=== PATIENT | male | born 1985 | race Hispanic/Latino ===

== ENCOUNTER 2018-01-17 01:55 | Emergency (ER) | payer SELFPAY ==
[2018-01-17 02:14] VITALS: BP 127/78; PULSE 90; RESP 14; TEMP 98; O2SAT 99
[2018-01-17] MEDS ORDERED: Bacitracin 500 Units/gm Oint Foilpak UD ONE (02:49)
--- NOTE | 2018-01-17 02:54 | C.PDOC ---
History Of Present Illness 32 years old male presents to ED with complaints of laceration to right thumb that occurred yesterday at 5PM. Patient states he was able to stop the bleeding. Patient reports he accidentally struck injured finger against a counter at work and area started to bleed again which prompted the ER visit. Denies any other physical complaints. UTD with tetanus Time Seen by Provider: 01/17/18 02:27 Chief Complaint (Nursing): Abnormal Skin Integrity History Per: Patient History/Exam Limitations: no limitations Onset/Duration Of Symptoms: Days (1) Current Symptoms Are (Timing): Still Present Location Of Injury: Right: Hand (Right thumb ) Recent travel outside of the [place]: No Past Medical History Reviewed: Historical Data, Nursing Documentation, Vital Signs Vital Signs: Last Vital Signs Temp 98 F 01/17/18 02:09 Pulse 90 01/17/18 02:09 Resp 14 01/17/18 02:09 BP 127/78 01/17/18 02:09 Pulse Ox 99 01/17/18 03:23 - Medical History PMH: Kidney Stones Surgical History: No Surg Hx Family History: States: Unknown Family Hx - Social History Hx Tobacco Use: Yes Hx Alcohol Use: Yes Hx Substance Use: No - Immunization History Hx Tetanus Toxoid Vaccination: Yes Hx Influenza Vaccination: Yes Hx Pneumococcal Vaccination: Yes Review Of Systems Constitutional: Negative for: Fever, Chills Gastrointestinal: Negative for: Nausea, Vomiting, Diarrhea Skin: Positive for: Other (Right thumb bleeding). Negative for: Rash Neurological: Negative for: Weakness, Numbness Physical Exam - Physical Exam Appears: Non-toxic, No Acute Distress Skin: Warm, Dry, Other (Small area of skin avulsion of right thumb. No forign body. Good capillary refill.) Extremity: Normal ROM, Capillary Refill, No Deformity, Other (No bleeding. xeroform dressing applied to thumb. ) Neurological/Psych: Oriented x3, Normal Speech, Normal Cognition Gait: Steady ED Course And Treatment O2 Sat by Pulse Oximetry: 99 (RA) Pulse Ox Interpretation: Normal Disposition Counseled Patient/Family Regarding: Diagnosis, Need For Followup, Rx Given - Disposition Referrals: [facility] [Outside] Disposition: HOME/ ROUTINE Disposition Time: 02:52 Condition: STABLE Additional Instructions: Please Keep wound clean and dry x 48 hrs Apply bacitracin ointment follow up with PMD Return to ER if worse Instructions: Wound Care (DC) Forms: [facility] (Albanian) - Clinical Impression Clinical Impression: Avulsion, skin - 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 - Scribe Statement The provider has reviewed the documentation as recorded by the Scribe Raphael Sauceda All medical record entries made by the Seanibmary were at my direction and personally dictated by me. I have reviewed the chart and agree that the record accurately reflects my personal performance of the history, physical exam, medical decision making, and the department course for this patient. I have also personally directed, reviewed, and agree with the discharge instructions and disposition.
== END 2018-01-17 03:23 | disposition home or self-care (01) ==
LOC: C.ER 01:55
DX: S61.011A Laceration without foreign body of right thumb without damage to nail, initial encounter (principal); W22.09XA Striking against other stationary object, initial encounter; Y92.89 Other specified places as the place of occurrence of the external cause; Y99.8 Other external cause status

== ENCOUNTER 2018-05-14 16:22 | Inpatient (IN) | payer OTHER ==
[2018-05-14 16:37] VITALS: BMI 26.6
[2018-05-14 17:17] LABS: BASO % 0.3 % (0.0-2.0); EOS # 0.1 K/uL (0.0-0.7); EOS % 0.4 % (0.0-4.0); HEMOGLOBIN 19.5 g/dL (12.0-18.0); LYMPH # 1.3 K/uL (1.0-4.3); LYMPH % 9.5 % (20.0-40.0); MEAN CELL VOLUME 83.8 fL (80.0-94.0); MEAN CORPUSCULAR HEMOGLOBIN 29.6 pg (27.0-31.0); MEAN CORPUSCULAR HGB CONC 35.3 g/dL (33.0-37.0); MEAN PLATELET VOLUME 9.4 fL (7.2-11.7); MONO # 2.6 K/uL (0.0-0.8); MONO % 19.4 % (0.0-10.0); NEUT # 9.5 K/uL (1.8-7.0); NEUT % 70.4 % (50.0-75.0); NRBC % 0.1 % (0.0-2.0); PLATELET COUNT 291 K/uL (130-400); RBC 6.59 Mil/uL (4.40-5.90); RED CELL DISTRIBUTION WIDTH 12.9 % (11.5-14.5); WHITE BLOOD COUNT 13.5 K/uL (4.8-10.8)
[2018-05-14 17:31] LABS: ALB/GLOB RATIO 1.4 (1.0-2.1); ALBUMIN 5.3 g/dL (3.5-5.0); CALCIUM 9.2 mg/dl (8.6-10.4)
[2018-05-14 17:38] LABS: SQUAMOUS EPITHIAL < 1 /hpf (0-5); URINE BILIRUBIN NEGATIVE (NEGATIVE); URINE BLOOD NEGATIVE (NEGATIVE); URINE CLARITY Hazy (Clear); URINE GLUCOSE (UA) NORMAL (Normal); URINE HYALINE CAST >20 /lpf (0-2); URINE LEUKOCYTE ESTERASE NEG Leu/uL (Negative); URINE PROTEIN 2+ mg/dL (NEGATIVE); URINE UROBILINOGEN NORMAL mg/dL (0.2-1.0)
[2018-05-14] MEDS ORDERED: Sodium Chloride 0.9% 1,000 ML IV ONE ×3 (17:39→19:30)
[2018-05-14] MEDS ORDERED: Potassium Chloride 20 mEq ER Tab PO STA (17:46)
[2018-05-14 17:50] LABS: URINE COLOR YELLOW (YELLOW)
[2018-05-14] MEDS ORDERED: Sodium Chloride 0.9% 2,000 ML ONE (17:50)
[2018-05-14] MEDS ORDERED: Potassium Chloride 20 mEq ER Tab PO ONE (18:02)
[2018-05-14 18:30] LABS: BANDS 5 % (0-2); LYMPHOCYTE 11 % (20-40); MONOCYTE 15 % (0-10); NEUTROPHIL 69 % (50-75); PLATELET ESTIMATE NORMAL (NORMAL); TOTAL CELLS COUNTED 100
--- NOTE | 2018-05-14 18:46 | C.PDOC ---
History Of Present Illness <Valdemar Madden - Last Filed: 05/14/18 19:51> <Tristian Florence DO - Last Filed: 05/15/18 13:29> 33 y/o male presents to the ER complaining of nausea, vomiting and diarrhea for 3 days. The patient admits to a subjective fever two days ago and state he is unable to tolerate PO intake. He reports taking theraflu with no relief at home. The patient also denies any hematemesis or blood in stool. (Ludivina NOLASCO Tristian) <Valdemar Madden - Last Filed: 05/14/18 19:51> History Per: Patient History/Exam Limitations: no limitations Onset/Duration Of Symptoms: Days Current Symptoms Are (Timing): Still Present Associated Symptoms: Nausea, Vomiting, Diarrhea Alleviating Factors: None Last Bowel Movement: Today Recent travel outside of the [place]: No <Jeremyjennifer Tristian NOLASCO - Last Filed: 05/15/18 13:29> Time Seen by Provider: 05/14/18 17:01 Chief Complaint (Nursing): GI Problem Past Medical History Reviewed: Historical Data, Nursing Documentation, Vital Signs - Medical History PMH: Kidney Stones Surgical History: No Surg Hx Family History: States: Unknown Family Hx - Social History Hx Tobacco Use: Yes Hx Alcohol Use: Yes Hx Substance Use: No - Immunization History Hx Tetanus Toxoid Vaccination: Yes Hx Influenza Vaccination: No Hx Pneumococcal Vaccination: No <Tristian Florence DO - Last Filed: 05/15/18 13:29> Vital Signs: Last Vital Signs Temp 98.2 F 05/15/18 07:00 Pulse 74 05/15/18 07:00 Resp 20 05/15/18 07:00 BP 147/78 05/15/18 07:00 Pulse Ox 97 05/15/18 07:00 Review Of Systems Except As Marked, All Systems Reviewed And Found Negative. Constitutional: Negative for: Fever Gastrointestinal: Positive for: Nausea, Vomiting, Diarrhea Genitourinary: Negative for: Hematuria, Other (blood in stool ) <Tristian Florence DO - Last Filed: 05/15/18 13:29> Physical Exam - Physical Exam Appears: Well, Non-toxic, No Acute Distress Skin: Normal Color, Warm, Dry Head: Atraumatic, Normacephalic Eye(s): bilateral: Normal Inspection, PERRL, EOMI Ear(s): Bilateral: Normal Nose: Normal Oral Mucosa: Dry Throat: Normal Neck: Normal ROM Chest: Symmetrical Cardiovascular: Rhythm Regular, No Murmur Respiratory: Normal Breath Sounds, No Rales, No Rhonchi, No Wheezing Gastrointestinal/Abdominal: Normal Exam, Soft, Tenderness (mild, diffuse abdominal tenderness) Extremity: Normal ROM Extremity: Bilateral: Atraumatic, Normal Color And Temperature, Normal ROM Pulses: Left Radial: Normal, Right Radial: Normal Neurological/Psych: Oriented x3, Normal Speech Gait: Steady <Ludivina NOLASCOTristian - Filed: 05/15/18 13:29> ED Course And Treatment - Laboratory Results Result Diagrams: 05/14/18 17:14 05/14/18 17:14 <Valdemar Madden - Filed: 05/14/18 19:51> - Laboratory Results Result Diagrams: 05/15/18 06:36 05/15/18 06:36 O2 Sat by Pulse Oximetry: 100 (RA) Pulse Ox Interpretation: Normal - CT Scan/US Abdomen/ Pelvis Other Rad Studies (CT/US): Read By Radiologist, Radiology Report Reviewed CT/US Interpretation: FINDINGS: LOWER THORAX: Unremarkable. LIVER: Unremarkable. No gross lesion or ductal dilatation. GALLBLADDER AND BILE DUCTS : Unremarkable. PANCREAS: Unremarkable. No gross lesion or ductal dilatation. SPLEEN: Mild splenomegaly. The spleen measures approximately 14 cm in greatest dimension. No mass. ADRENALS: Unremarkable. No mass. KIDNEYS AND URETERS: Unremarkable. No hydronephrosis. No solid mass. VASCULATURE: Unremarkable. No aortic aneurysm. BOWEL: Unremarkable. No obstruction. No gross mural thickening. APPENDIX: Unremarkable. Normal appendix. PERITONEUM: Unremarkable. No free fluid. No free air. LYMPH NODES: No retroperitoneal or pelvic lymphadenopathy. Shotty subcentimeter mesenteric nodes are evident as well as nodes medial to the cecum and ascending colon, consistent with nonspecific mesenteric adenitis. Best demonstrated on series 601, image 47. There are also shotty subcentimeter retroperitoneal nodes common nonspecific. BLADDER: Unremarkable. REPRODUCTIVE: Normal prostate. BONES: No acute fracture. OTHER FINDINGS: None. IMPRESSION: Finding consistent with mesenteric lymphadenitis. Mild splenomegaly. No other acute abnormality. <Tristian Florence DO - Last Filed: 05/15/18 13:29> Medical Decision Making <Valdemar Madden - Last Filed: 05/14/18 19:51> <Ludivina NOLASCOTristian - Last Filed: 05/15/18 13:29> Medical Decision Making: Impression: 33 y/o male with persistent nausea, vomiting and diarrhea Plan: -- CT abd/pelvis --CMP --Lipase --CBC --Pepcid 20 mg IV --Potassium Chloride 10 meq in 100 ml IV --IV FLuid --Zofran Inj 4 mg IV --UA (Tristian Florence DO) Disposition Discussed With DrPritesh: Nguyễn Henriquez Comment: accepted the pt on his service and took over the care at 7:52 PM Doctor Will See Patient In The: ED Counseled Patient/Family Regarding: Studies Performed, Diagnosis - Disposition Disposition Time: 19:00 <Valdemar Madden - Last Filed: 05/14/18 19:51> <Ludivina NOLASCOTristian - Last Filed: 05/15/18 13:29> - Disposition Disposition: HOSPITALIZED Condition: FAIR - Clinical Impression Clinical Impression: Abdominal pain, Nausea & vomiting, Severe dehydration, Renal insufficiency <Valdemar Madden - Last Filed: 05/14/18 19:51> - PA / SENIOR TRIAL ATTORNEY / Resident Statement JASON has reviewed & agrees with the documentation as recorded. - Scribe Statement The provider has reviewed the documentation as recorded by the Scribe (Ivis Felix) <Ludivina NOLASCOTristian - Last Filed: 05/15/18 13:29> - Scribe Statement Provider Attestation: All medical record entries made by the Scribe were at my direction and personally dictated by me. I have reviewed the chart and agree that the record accurately reflects my personal performance of the history, physical exam, medical decision making, and the department course for this patient. I have also personally directed, reviewed, and agree with the discharge instructions and disposition. (Tristian Florence DO) Decision To Admit - Pt Status Changed To: Hospital Disposition Of: Inpatient - Admit Certification Admit to Inpatient:: After my assessment, the patient will require hospitalization for at least two midnights. This is because of the severity of symptoms shown, intensity of services needed, and/or the medical risk in this patient being treated as an outpatient. - InPatient: Physician Admission Certification: I certify that this patient requires 2 or more midnights of care for the following reason:: After my assessment, the patient will require hospitalization for at least two midnights. This is because of the severity of symptoms shown, intensity of services needed, and/or the medical risk in this patient being treated as an outpatient. - . Bed Request Type: Regular Admitting Physician: Nguyễn Henriquez <Valdemar Madden - Last Filed: 05/14/18 19:51> <Tristian Florence DO - Last Filed: 05/15/18 13:29> - . Patient Diagnosis: Abdominal pain, Nausea & vomiting, Severe dehydration, Renal insufficiency
--- NOTE | 2018-05-14 18:53 | CT ---
Date of service: 05/14/2018 PROCEDURE: CT Abdomen and Pelvis without intravenous contrast HISTORY: diffuse abd tenderness COMPARISON: 08/10/2015 TECHNIQUE: Without contrast.. Contrast dose: 0 Radiation dose: Total exam DLP = 877.50 mGy-cm. This CT exam was performed using one or more of the following dose reduction techniques: Automated exposure control, adjustment of the mA and/or kV according to patient size, and/or use of iterative reconstruction technique. FINDINGS: LOWER THORAX: Unremarkable. LIVER: Unremarkable. No gross lesion or ductal dilatation. GALLBLADDER AND BILE DUCTS: Unremarkable. PANCREAS: Unremarkable. No gross lesion or ductal dilatation. SPLEEN: Mild splenomegaly. The spleen measures approximately 14 cm in greatest dimension. No mass. ADRENALS: Unremarkable. No mass. KIDNEYS AND URETERS: Unremarkable. No hydronephrosis. No solid mass. VASCULATURE: Unremarkable. No aortic aneurysm. BOWEL: Unremarkable. No obstruction. No gross mural thickening. APPENDIX: Unremarkable. Normal appendix. PERITONEUM: Unremarkable. No free fluid. No free air. LYMPH NODES: No retroperitoneal or pelvic lymphadenopathy. Shotty subcentimeter mesenteric nodes are evident as well as nodes medial to the cecum and ascending colon, consistent with nonspecific mesenteric adenitis. Best demonstrated on series 601, image 47. There are also shotty subcentimeter retroperitoneal nodes common nonspecific. BLADDER: Unremarkable. REPRODUCTIVE: Normal prostate BONES: No acute fracture. OTHER FINDINGS: None. IMPRESSION: Finding consistent with mesenteric lymphadenitis. Mild splenomegaly. No other acute abnormality.
[2018-05-14 21:44] VITALS: RESP 20
[2018-05-14] MEDS ORDERED: Sodium Chloride 0.9% 1,000 ML IV SCH (22:30)
--- NOTE | 2018-05-14 22:37 | CP.PCM.HP ---
<Nguyễn Henriquez P - Last Filed: 05/15/18 06:59> Meds Allergies/Adverse Reactions: Allergies Allergy/AdvReac Type Severity Reaction Status Date / Time No Known Allergies Allergy Verified 05/14/18 16:35 Results - Vital Signs Recent Vital Signs: Last Vital Signs Temp 98.2 F 05/15/18 00:00 Pulse 76 05/15/18 00:00 Resp 20 05/15/18 00:00 BP 125/71 05/15/18 00:00 Pulse Ox 98 05/15/18 00:00 - Labs Result Diagrams: 05/15/18 00:31 05/15/18 00:31 Labs: Laboratory Results - last 24 hr 05/14/18 05/14/18 05/14/18 17:14 17:14 17:19 WBC 13.5 H RBC 6.59 H Hgb 19.5 H D Hct 55.2 H MCV 83.8 D MCH 29.6 MCHC 35.3 RDW 12.9 Plt Count 291 D MPV 9.4 Neut % (Auto) 70.4 Lymph % (Auto) 9.[address] [facility] % (Auto) 19.4 H Eos % (Auto) 0.4 Baso % (Auto) 0.3 Neut # (Auto) 9.5 H Lymph # (Auto) 1.3 [facility] # (Auto) 2.6 H Eos # (Auto) 0.1 Baso # (Auto) 0.0 Neutrophils % (Manual) 69 Band Neutrophils % 5 H Lymphocytes % (Manual) 11 L Monocytes % (Manual) 15 H Platelet Estimate Normal Sodium 128 L Potassium 3.0 L Chloride 85 L Carbon Dioxide 17 L Anion Gap 29 H BUN 42 H Creatinine 4.0 H Est GFR ( Amer) 21 Est GFR (Non-Af Amer) 17 Random Glucose 144 H Calcium 9.2 Phosphorus Magnesium Total Bilirubin 0.9 AST 47 ALT 38 Alkaline Phosphatase 91 Total Protein 9.2 H Albumin 5.3 H D Globulin 3.8 Albumin/Globulin Ratio 1.4 Lipase Urine Color Yellow Urine Clarity Hazy Urine pH 5.0 Ur Specific Norman 1.020 Urine Protein 2+ H Urine Glucose (UA) Normal Urine Ketones Negative Urine Blood Negative Urine Nitrate Negative Urine Bilirubin Negative Urine Urobilinogen Normal Ur Leukocyte Esterase Neg Urine WBC (Auto) 2 Urine RBC (Auto) 1 Ur Squamous Epith Cells < 1 Hyaline Casts >20 H Stool Occult Blood 05/14/18 05/15/18 05/15/18 17:44 00:31 00:31 WBC 9.2 RBC 5.17 Hgb 15.3 D Hct 43.2 MCV 83.7 MCH 29.6 MCHC 35.4 RDW 12.5 Plt Count 199 MPV 9.0 Neut % (Auto) 64.5 Lymph % (Auto) 13.[address] [facility] % (Auto) 20.8 H Eos % (Auto) 0.9 Baso % (Auto) 0.3 Neut # (Auto) 5.9 Lymph # (Auto) 1.2 [facility] # (Auto) 1.9 H Eos # (Auto) 0.1 Baso # (Auto) 0.0 Neutrophils % (Manual) 65 Band Neutrophils % 1 Lymphocytes % (Manual) 14 L Monocytes % (Manual) 20 H Platelet Estimate Normal Sodium 131 L Potassium 2.9 L Chloride 97 L Carbon Dioxide 19 L Anion Gap 18 BUN 29 H Creatinine 1.9 H Est GFR ( Amer) 49 Est GFR (Non-Af Amer) 41 Random Glucose 111 H Calcium 7.8 L Phosphorus Magnesium 1.7 Total Bilirubin 0.6 AST 37 ALT 34 Alkaline Phosphatase 65 Total Protein 6.5 Albumin 3.8 Globulin 2.6 Albumin/Globulin Ratio 1.4 Lipase 98 Urine Color Urine Clarity Urine pH Ur Specific [place] Urine Protein Urine Glucose (UA) Urine Ketones Urine Blood Urine Nitrate Urine Bilirubin Urine Urobilinogen Ur Leukocyte Esterase Urine WBC (Auto) Urine RBC (Auto) Ur Squamous Epith Cells Hyaline Casts Stool Occult Blood 05/15/18 05/15/18 01:54 04:03 WBC RBC Hgb Hct MCV MCH MCHC RDW Plt Count MPV Neut % (Auto) Lymph % (Auto) [facility] % (Auto) Eos % (Auto) Baso % (Auto) Neut # (Auto) Lymph # (Auto) [facility] # (Auto) Eos # (Auto) Baso # (Auto) Neutrophils % (Manual) Band Neutrophils % Lymphocytes % (Manual) Monocytes % (Manual) Platelet Estimate Sodium Potassium Chloride Carbon Dioxide Anion Gap BUN Creatinine Est GFR ( Amer) Est GFR (Non-Af Amer) Random Glucose Calcium Phosphorus 2.8 Magnesium Total Bilirubin AST ALT Alkaline Phosphatase Total Protein Albumin Globulin Albumin/Globulin Ratio Lipase Urine Color Urine Clarity Urine pH Ur Specific Norman Urine Protein Urine Glucose (UA) Urine Ketones Urine Blood Urine Nitrate Urine Bilirubin Urine Urobilinogen Ur Leukocyte Esterase Urine WBC (Auto) Urine RBC (Auto) Ur Squamous Epith Cells Hyaline Casts Stool Occult Blood Positive H Attending/Attestation - Attestation I have personally seen and examined this patient.: Yes I have fully participated in the care of the patient.: Yes I have reviewed all pertinent clinical information: Yes Notes (Text): Assessment * GE most likely viral, with mesentric lymphadenopathy with severe dehydration * CLAUDIA * Electrolyte imbalance * tobacco, marijuan abuse * H/o lupus, vasculitis to multiple members in the family, with possibility of baseline kindney disease. Plan * IVF * Replace electrolytes * Counselled about smoking, marijuana abuse * Counselled about following with PMD as out patient. * Stool w/u * Gi/DVT prophylaxis * See orders for detail. <Deanne Barraza. - Last Filed: 05/15/18 09:00> History of Present Illness - History of Present Illness History of Present Illness: HPI: Patient is a 33 year old male with a past medical history of RA, who presents with complaints of diarrhea and vomiting. The patient states he has had diarrhea since Friday, is constant, and is watery. He also started vomiting on Friday. He states he is unable to keep any food or liquids down. He tried taking theraflu and alkaseltzer with no relief of his symptoms. He did not change his diet or eat anything new this past weekend. The patient denies chest pain, abdominal pain, dyspnea, cough, fevers, headaches, dysuria, hematuria, and blood in stool. PMD: none PMHx: RA SurgHx: none FamHx: Mother- multiple autoimmune conditions, vasculitis, brain tumor; sister- crohns, lupus SociHx: [id number]+years; smokes marijuana daily; occasionally snorts cocaine; drink ~2 drinks three times per week; works as a finish painter Allergies: NKDA Medications: None Present on Admission - Present on Admission Any Indicators Present on Admission: No Review of Systems - Constitutional Constitutional: Chills, Weakness. absent: Fever, Headache - EENT Ears: absent: Dizziness - Cardiovascular Cardiovascular: absent: Chest Pain, Dyspnea, Leg Edema, Palpitations - Respiratory Respiratory: absent: Cough, Dyspnea, Hemoptysis - Gastrointestinal Gastrointestinal: Bloating, Diarrhea, Nausea, Vomiting. absent: Abdominal Pain , Constipation, Hematemesis, Hematochezia, Melena - Genitourinary Genitourinary: absent: Dysuria, Hematuria, Pyuria - Musculoskeletal Musculoskeletal: absent: Myalgias - Integumentary Integumentary: absent: Swelling - Neurological Neurological: absent: Dizziness, Headaches, Weakness - Endocrine Endocrine: absent: Fatigue, Palpitations - Hematologic/Lymphatic Hematologic: absent: Lymphadenopathy Past Patient History - Past Social History Smoking Status: Smoker Currrent Status Unknown - RENAL Hx Kidney Stones: Yes - ENDOCRINE/METABOLIC Other/Comment: Vit B deficiency - MUSCULOSKELETAL/RHEUMATOLOGICAL Hx Falls: No - GENITOURINARY/GYNECOLOGICAL Other/Comment: Kidney stone last May - PSYCHIATRIC Hx Substance Use: Yes (weeds) - SURGICAL HISTORY Hx Surgeries: No - ANESTHESIA Hx Anesthesia: No Hx Anesthesia Reactions: No Hx Malignant Hyperthermia: No Has any member of the family had a problem w/ anesthesia?: No Physical Exam - Constitutional Appears: No Acute Distress - Head Exam Head Exam: ATRAUMATIC, NORMAL INSPECTION, NORMOCEPHALIC - Eye Exam Eye Exam: EOMI, Normal appearance, PERRL - ENT Exam ENT Exam: Mucous Membranes Dry - Respiratory Exam Respiratory Exam: Clear to Auscultation Bilateral, NORMAL BREATHING PATTERN. absent: Rales, Rhonchi, Wheezes, Respiratory Distress - Cardiovascular Exam Cardiovascular Exam: REGULAR RHYTHM, +S1, +S2 - GI/Abdominal Exam GI & Abdominal Exam: Normal Bowel Sounds, Soft. absent: Distended, Firm, Mass, Tenderness - Extremities Exam Extremities exam: Positive for: normal inspection, pedal pulses present. Negative for: pedal edema, tenderness - Neurological Exam Neurological exam: Alert, Oriented x3 - Psychiatric Exam Psychiatric exam: Normal Affect, Normal Mood - Skin Skin Exam: Dry, Intact, Normal Color, Warm Results - Vital Signs Recent Vital Signs: Last Vital Signs Temp 98.2 F 05/14/18 21:43 Pulse 84 05/14/18 21:43 Resp 20 05/14/18 21:43 BP 137/80 05/14/18 21:43 Pulse Ox 99 05/14/18 22:01 - Labs Result Diagrams: 05/15/18 06:36 05/15/18 06:36 Labs: Laboratory Results - last 24 hr 05/14/18 05/14/18 05/14/18 17:14 17:14 17:19 WBC 13.5 H RBC 6.59 H Hgb 19.5 H D Hct 55.2 H MCV 83.8 D MCH 29.6 MCHC 35.3 RDW 12.9 Plt Count 291 D MPV 9.4 Neut % (Auto) 70.4 Lymph % (Auto) 9.[address] [facility] % (Auto) 19.4 H Eos % (Auto) 0.4 Baso % (Auto) 0.3 Neut # (Auto) 9.5 H Lymph # (Auto) 1.3 [facility] # (Auto) 2.6 H Eos # (Auto) 0.1 Baso # (Auto) 0.0 Neutrophils % (Manual) 69 Band Neutrophils % 5 H Lymphocytes % (Manual) 11 L Monocytes % (Manual) 15 H Platelet Estimate Normal Sodium 128 L Potassium 3.0 L Chloride 85 L Carbon Dioxide 17 L Anion Gap 29 H BUN 42 H Creatinine 4.0 H Est GFR ( Amer) 21 Est GFR (Non-Af Amer) 17 Random Glucose 144 H Calcium 9.2 Total Bilirubin 0.9 AST 47 ALT 38 Alkaline Phosphatase 91 Total Protein 9.2 H Albumin 5.3 H D Globulin 3.8 Albumin/Globulin Ratio 1.4 Lipase Urine Color Yellow Urine Clarity Hazy Urine pH 5.0 Ur Specific [place] 1.020 Urine Protein 2+ H Urine Glucose (UA) Normal Urine Ketones Negative Urine Blood Negative Urine Nitrate Negative Urine Bilirubin Negative Urine Urobilinogen Normal Ur Leukocyte Esterase Neg Urine WBC (Auto) 2 Urine RBC (Auto) 1 Ur Squamous Epith Cells < 1 Hyaline Casts >20 H 05/14/18 17:44 WBC RBC Hgb Hct MCV MCH MCHC RDW Plt Count MPV Neut % (Auto) Lymph % (Auto) [facility] % (Auto) Eos % (Auto) Baso % (Auto) Neut # (Auto) Lymph # (Auto) [facility] # (Auto) Eos # (Auto) Baso # (Auto) Neutrophils % (Manual) Band Neutrophils % Lymphocytes % (Manual) Monocytes % (Manual) Platelet Estimate Sodium Potassium Chloride Carbon Dioxide Anion Gap BUN Creatinine Est GFR ( Amer) Est GFR (Non-Af Amer) Random Glucose Calcium Total Bilirubin AST ALT Alkaline Phosphatase Total Protein Albumin Globulin Albumin/Globulin Ratio Lipase 98 Urine Color Urine Clarity Urine pH Ur Specific [place] Urine Protein Urine Glucose (UA) Urine Ketones Urine Blood Urine Nitrate Urine Bilirubin Urine Urobilinogen Ur Leukocyte Esterase Urine WBC (Auto) Urine RBC (Auto) Ur Squamous Epith Cells Hyaline Casts Assessment & Plan - Assessment and Plan (Free Text) Assessment: Gastroenteritis - Likely viral - Abd/Pelv CT: mesenteric lymphadenopathy; mild splenomegaly - Stool occult: f/u - Stool leukocytes: f/u - Stool culture: f/u - Ova & Parasite: f/u - C. Diff: f/u - Continue NS@150mls/hr - Continue Zofran 4mg IV Q6h prn for n/v Electrolyte imbalance - Likely secondary to diarrhea and vomiting - Replacing as needed - Continue to monitor daily labs CLAUDIA - Likely secondary to dehydration - BUN/Cr: 42/4 --> improving after hydration - Continue NS@150mls/hr - Continue to monitor labs Tobacco Abuse - Nicoderm patch Prophylaxis - DVT: SCDs, Heparin 5000u SC Q12 - GI: not indicated - Clear Liquid diet
[2018-05-15 00:57] LABS: BASO % 0.3 % (0.0-2.0); EOS # 0.1 K/uL (0.0-0.7); EOS % 0.9 % (0.0-4.0); LYMPH # 1.2 K/uL (1.0-4.3); LYMPH % 13.5 % (20.0-40.0); MEAN CELL VOLUME 83.7 fL (80.0-94.0); MEAN CORPUSCULAR HEMOGLOBIN 29.6 pg (27.0-31.0); MEAN CORPUSCULAR HGB CONC 35.4 g/dL (33.0-37.0); MONO # 1.9 K/uL (0.0-0.8); MONO % 20.8 % (0.0-10.0); NEUT # 5.9 K/uL (1.8-7.0); NEUT % 64.5 % (50.0-75.0); NRBC % 0.1 % (0.0-2.0); PLATELET COUNT 199 K/uL (130-400); RBC 5.17 Mil/uL (4.40-5.90); RED CELL DISTRIBUTION WIDTH 12.5 % (11.5-14.5); WHITE BLOOD COUNT 9.2 K/uL (4.8-10.8)
[2018-05-15 00:58] LABS: HEMOGLOBIN 15.3 g/dL (12.0-18.0)
[2018-05-15 01:10] LABS: ALB/GLOB RATIO 1.4 (1.0-2.1); ALBUMIN 3.8 g/dL (3.5-5.0); CALCIUM 7.8 mg/dl (8.6-10.4)
[2018-05-15 01:32] LABS: BANDS 1 % (0-2); LYMPHOCYTE 14 % (20-40); MONOCYTE 20 % (0-10); NEUTROPHIL 65 % (50-75); PLATELET ESTIMATE NORMAL (NORMAL); TOTAL CELLS COUNTED 100
[2018-05-15] MEDS: Sodium Chloride 0.9% 1,000 ML IV SCH ×6 (02:42→21:47)
[2018-05-15 07:02] LABS: ALB/GLOB RATIO 1.5 (1.0-2.1); ALBUMIN 3.8 g/dL (3.5-5.0); ALT/SGPT 24 U/L (21-72); AST/SGOT 36 U/L (17-59); BLOOD UREA NITROGEN 23 mg/dL (9-20); CALCIUM 8.1 mg/dl (8.6-10.4); GFR AFRICAN-AMERICAN > 60; GFR NON-AFRICAN AMERICAN 54
[2018-05-15 07:05] LABS: BASO % 0.4 % (0.0-2.0); EOS # 0.1 K/uL (0.0-0.7); EOS % 1.4 % (0.0-4.0); HEMOGLOBIN 14.9 g/dL (12.0-18.0); LYMPH % 12.6 % (20.0-40.0); MEAN CELL VOLUME 83.9 fL (80.0-94.0); MEAN CORPUSCULAR HEMOGLOBIN 29.3 pg (27.0-31.0); MEAN PLATELET VOLUME 9.1 fL (7.2-11.7); MONO # 1.7 K/uL (0.0-0.8); MONO % 22.2 % (0.0-10.0); NEUT % 63.4 % (50.0-75.0); NRBC % 0.1 % (0.0-2.0); PLATELET COUNT 183 K/uL (130-400); RBC 5.07 Mil/uL (4.40-5.90); RED CELL DISTRIBUTION WIDTH 12.6 % (11.5-14.5); WHITE BLOOD COUNT 7.9 K/uL (4.8-10.8)
[2018-05-15 08:42] LABS: BANDS 5 % (0-2); EOSINOPHIL 1 % (0-4); LYMPHOCYTE 13 % (20-40); MONOCYTE 25 % (0-10); NEUTROPHIL 56 % (50-75); TOTAL CELLS COUNTED 100
[2018-05-15 08:43] LABS: PLATELET CLUMPS PRESENT; PLATELET ESTIMATE NORMAL (NORMAL)
[2018-05-15] MEDS ORDERED: Potassium Chloride 20 mEq ER Tab PO SCH (10:00)
[2018-05-15 17:00] LABS: BLOOD UREA NITROGEN 13 mg/dL (9-20); CALCIUM 8.3 mg/dl (8.6-10.4); GFR AFRICAN-AMERICAN > 60; GFR NON-AFRICAN AMERICAN > 60
[2018-05-15] MEDS ORDERED: Potassium Chloride 20 mEq ER Tab PO STA (17:13)
--- NOTE | 2018-05-15 17:19 | CP.PCM.PN ---
Subjective - Date & Time of Evaluation Date of Evaluation: 05/15/18 Time of Evaluation: 12:30 - Subjective Subjective: PGY-1 Ana Cristina Smith D.O. Medicine progress note for Dr. Fabián Silva's service: Patient seen and examined. He is not in acute distress. He states he is drinking liquids and only vomited x1 this afternoon. He continues to have diarrhea. He also noted some red blood in his stool. He does endorse a history of hemorrhoids. He denies rectal pain. He denies abdominal pain but feels bloated. He denies fevers and chills. He denies urinary symptoms. Objective - Vital Signs/Intake and Output Vital Signs (last 24 hours): Temp Pulse Resp BP Pulse Ox 98.1 F 71 20 125/69 98 05/15/18 16:11 05/15/18 16:11 05/15/18 16:11 05/15/18 16:11 05/15/18 16:11 Intake and Output: 05/15/18 05/15/18 06:59 18:59 Intake Total 1380 1600 Balance 1380 1600 - Medications Medications: Current Medications Heparin Sodium (Porcine) (Heparin) 5,000 units SC Q8 [facility] Last Admin: 05/15/18 14:23 Dose: 5,000 units Sodium Chloride (Sodium Chloride 0.9%) 1,000 mls @ 150 mls/hr IV .Q6H40M [facility] Last Admin: 05/15/18 16:14 Dose: Not Given Potassium Chloride (Potassium Chloride 20 Meq/100 Ml) 20 meq in 100 mls @ 50 mls/hr IVPB STAT STA Stop: 05/15/18 19:12 Potassium Chloride (Potassium Chloride 20 Meq/100 Ml) 20 meq in 100 mls @ 50 mls/hr IVPB ONCE ONE Stop: 05/15/18 21:13 Nicotine (Nicoderm Cq) 1 patch TD DAILY [facility] Last Admin: 05/15/18 09:49 Dose: Not Given Ondansetron HCl (Zofran Inj) 4 mg IVP Q6 PRN PRN Reason: Nausea/Vomiting Pneumococcal Polyvalent Vaccine (Pneumovax 23 Vaccine) 0.5 ml IM .ONCE ONE Stop: 05/16/18 10:01 Potassium Chloride (K-Dur 20 Meq Er Tab) 40 meq PO DAILY [facility] Last Admin: 05/15/18 09:42 Dose: 40 meq Potassium Chloride (K-Dur 20 Meq Er Tab) 40 meq PO STAT STA Stop: 05/15/18 17:14 - Labs Labs: 05/15/18 06:36 05/15/18 16:32 - Constitutional Appears: Well, Non-toxic, No Acute Distress - Head Exam Head Exam: ATRAUMATIC, NORMAL INSPECTION, NORMOCEPHALIC - Eye Exam Eye Exam: EOMI, Normal appearance - ENT Exam ENT Exam: Mucous Membranes Moist, Normal Exam - Neck Exam Neck Exam: Normal Inspection. absent: Lymphadenopathy - Respiratory Exam Respiratory Exam: Clear to Ausculation Bilateral, NORMAL BREATHING PATTERN. absent: Rhonchi, Wheezes, Respiratory Distress - Cardiovascular Exam Cardiovascular Exam: REGULAR RHYTHM, +S2. absent: Murmur - GI/Abdominal Exam GI & Abdominal Exam: Soft, Normal Bowel Sounds. absent: Tenderness, Mass, Rebound - Rectal Exam Rectal Exam: Deferred - Extremities Exam Extremities Exam: Full ROM, Normal Capillary Refill, Normal Inspection - Back Exam Back Exam: NORMAL INSPECTION. absent: tenderness - Neurological Exam Neurological Exam: Alert, Awake, CN II-XII Intact, Normal Gait, Oriented x3 - Psychiatric Exam Psychiatric exam: Normal Affect, Normal Mood - Skin Skin Exam: Dry, Intact, Normal Color, Warm Assessment and Plan - Assessment and Plan (Free Text) Assessment: Patient is a 33 yo male who presented with vomiting and watery diarrhea. Hypokalemia being corrected. Patient was found to have occult blood in his stool. Will need to be worked up for IBD as an outpatient (sister has Crohns). Plan: Gastroenteritis, acute- suspect viral and/or IBD - Abd/Pelv CT: mesenteric lymphadenopathy; mild splenomegaly - Stool occult positive - Stool leukocytes negative - Stool culture: f/u - Ova & Parasite: f/u - C. Diff: f/u - Continue NS@150mls/hr - Continue Zofran 4mg IV Q6h prn for n/v Hypokalemia, acute, worsening- likely secondary to diarrhea and vomiting - Replacing as needed - Monitor BMP in AM CLAUDIA, acute, improving - Likely secondary to dehydration - Continue NS@150mls/hr - Continue to monitor labs RA- not on any meds, currently asymptomatic Tobacco use disorder - Nicoderm patch IVF: NS @ 150 DVT ppx: SCDs, Heparin 5000u SC Q12 GI ppx: not indicated Diet: Clear Liquids Code status: full code
[2018-05-15] MEDS ORDERED: DiphenhydrAMINE 50 mg/ml Inj IVP STA ×2 (23:58)
[2018-05-16] MEDS: Sodium Chloride 0.9% 1,000 ML IV SCH ×3 (06:15→13:15)
[2018-05-16 06:49] LABS: EOS # 0.1 K/uL (0.0-0.7); HEMOGLOBIN 14.4 g/dL (12.0-18.0); LYMPH # 0.9 K/uL (1.0-4.3); MONO # 1.4 K/uL (0.0-0.8)
[2018-05-16 07:10] LABS: ALB/GLOB RATIO 1.5 (1.0-2.1); ALBUMIN 3.8 g/dL (3.5-5.0); ALT/SGPT 30 U/L (21-72); AST/SGOT 38 U/L (17-59); BLOOD UREA NITROGEN 6 mg/dL (9-20); CALCIUM 8.3 mg/dl (8.6-10.4); GFR AFRICAN-AMERICAN > 60; GFR NON-AFRICAN AMERICAN > 60
[2018-05-16 07:18] LABS: BASO % 0.3 % (0.0-2.0); EOS % 0.7 % (0.0-4.0); LYMPH % 13.3 % (20.0-40.0); MEAN CELL VOLUME 84.2 fL (80.0-94.0); MEAN CORPUSCULAR HEMOGLOBIN 29.8 pg (27.0-31.0); MEAN CORPUSCULAR HGB CONC 35.4 g/dL (33.0-37.0); MEAN PLATELET VOLUME 9.1 fL (7.2-11.7); MONO % 20.8 % (0.0-10.0); NEUT # 4.4 K/uL (1.8-7.0); NEUT % 64.9 % (50.0-75.0); NRBC % 0.1 % (0.0-2.0); PLATELET COUNT 188 K/uL (130-400); RBC 4.82 Mil/uL (4.40-5.90); RED CELL DISTRIBUTION WIDTH 12.4 % (11.5-14.5); WHITE BLOOD COUNT 6.8 K/uL (4.8-10.8)
[2018-05-16 08:32] LABS: BARBITURATES, UR NEGATIVE (NEGATIVE); BENZODIAZEPINES, UR NEGATIVE (NEGATIVE); OPIATES, UR NEGATIVE (NEGATIVE); PHENCYCLIDINE, UR NEGATIVE (NEGATIVE)
[2018-05-16 08:55] LABS: BANDS 13 % (0-2); LYMPHOCYTE 13 % (20-40); MONOCYTE 23 % (0-10); NEUTROPHIL 50 % (50-75); PLATELET ESTIMATE NORMAL (NORMAL); REACTIVE LYMPHOCYTES 1 % (0-0); TOTAL CELLS COUNTED 100
[2018-05-16 08:56] LABS: ANISOCYTOSIS SLIGHT
--- NOTE | 2018-05-16 09:10 | CP.PCM.PN ---
Subjective - Date & Time of Evaluation Date of Evaluation: 05/16/18 - Subjective Subjective: PGY 3 Med Note- Dr. Sterling Silva's service Per clinical provider, patient was witnessed outside the hospital premises. Nursing team, community youth secretary and security were involved. Patient was thus escorted back into the hospital. Per nursing, patient did not realize that he could not leave the hospital. Objective - Vital Signs/Intake and Output Vital Signs (last 24 hours): Temp Pulse Resp BP Pulse Ox 98.5 F 97 H 20 151/65 H 96 05/16/18 07:33 05/16/18 07:33 05/16/18 07:33 05/16/18 07:33 05/16/18 07:33 Intake and Output: 05/16/18 05/16/18 06:59 18:59 Intake Total 2760 Balance 2760 - Medications Medications: Current Medications Heparin Sodium (Porcine) (Heparin) 5,000 units SC Q8 [facility] Last Admin: 05/16/18 06:15 Dose: 5,000 units Sodium Chloride (Sodium Chloride 0.9%) 1,000 mls @ 150 mls/hr IV .Q6H40M [facility] Last Admin: 05/16/18 06:15 Dose: 150 mls/hr Nicotine (Nicoderm Cq) 1 patch TD DAILY [facility] Last Admin: 05/15/18 09:49 Dose: Not Given Ondansetron HCl (Zofran Inj) 4 mg IVP Q6 PRN PRN Reason: Nausea/Vomiting Pneumococcal Polyvalent Vaccine (Pneumovax 23 Vaccine) 0.5 ml IM .ONCE ONE Stop: 05/16/18 10:01 Potassium Chloride (K-Dur 20 Meq Er Tab) 40 meq PO DAILY [facility] Last Admin: 05/15/18 09:42 Dose: 40 meq - Labs Labs: 05/16/18 06:32 05/16/18 06:32 Assessment and Plan - Assessment and Plan (Free Text) Assessment: Gastroenteritis, acute -Could be either of viral, bacterial etiology or due to IBD presentation ( Sister with Crohn's disease) -Abd/Pelv CT: mesenteric lymphadenitis noted; mild splenomegaly; shotty subcentimeter retroperitoneal nodes. Refer to complete report. -Stool occult positive -Stool leukocytes negative - C. Diff: negative - F/U Stool culture, Ova & Parasite: - Clear liquid diet - Continue NS@150mls/hr - Continue Zofran 4mg IV Q6h prn for n/v Electrolyte abnormality - Likely secondary to diarrhea and vomiting - replete as needed - Continue to monitor labs Bandemia - Bandemia of 13 - No leukocytosis noted. No clinical fevers - CLAUDIA - Resolved. - Noted on admission. Likely secondary to dehydration - Continue fluid hydration in light of diarrhea and and poor oral intake - Continue to monitor labs Rheumatoid arthritis -Not on any meds currently, -currently asymptomatic -Of note, may have autoimmune qualities -Monitor History of drug use -UDS warranted after patient left hospital and went outside -UDS positive for cannabinoids -Cessation counseling Tobacco use - Nicoderm patch -Cessation counseling Prophylaxis DVT ppx: SCDs, Heparin 5000u SC Q12 GI ppx: Not indicated
[2018-05-16] MEDS ORDERED: Potassium Chloride 20 mEq ER Tab PO ONE ×2 (09:45→10:00)
[2018-05-16] MEDS ORDERED: Pneumococcal 23-Valent Vaccine IM ONE (10:00)
[2018-05-16] MEDS ORDERED: Potassium Phosphate 15 MMOLE in Sodium Chloride 0.9% 250 ML IVPB ONE (10:00)
[2018-05-16 15:57] LABS: BLOOD UREA NITROGEN 4 mg/dL (9-20); CALCIUM 8.7 mg/dl (8.6-10.4); GFR AFRICAN-AMERICAN > 60; GFR NON-AFRICAN AMERICAN > 60
[2018-05-16 16:00] VITALS: BP 135/77; PULSE 76; TEMP 99.2; O2SAT 99
[2018-05-16] MEDS ORDERED: Potassium Phosphate 15 MMOLE in Sodium Chloride 0.9% 250 ML IV ONE (17:00)
--- NOTE | 2018-05-16 17:04 | CP.PCM.DIS ---
Provider - Provider Date of Admission: 05/14/18 19:49 Attending physician: Fabián Silva MD Time Spent in preparation of Discharge (in minutes): 33 Diagnosis - Discharge Diagnosis (1) Abdominal pain Status: Acute (2) Diarrhea Status: Acute (3) Hypokalemia Status: Acute (4) CLAUDIA (acute kidney injury) Status: Resolved (5) Rheumatoid arthritis Status: Chronic (6) Tobacco use Status: Chronic Hospital Course - Lab Results Lab Results: Most Recent Lab Values WBC 6.8 K/uL (4.8-10.8) 05/16/18 06:32 RBC 4.82 Mil/uL (4.40-5.90) 05/16/18 06:32 Hgb 14.4 g/dL (12.0-18.0) 05/16/18 06:32 Hct 40.6 % (35.0-51.0) 05/16/18 06:32 MCV 84.2 fL (80.0-94.0) 05/16/18 06:32 MCH 29.8 pg (27.0-31.0) 05/16/18 06:32 MCHC 35.4 g/dL (33.0-37.0) 05/16/18 06:32 RDW 12.4 % (11.5-14.5) 05/16/18 06:32 Plt Count 188 K/uL (130-400) 05/16/18 06:32 MPV 9.1 fL (7.2-11.7) 05/16/18 06:32 Neut % (Auto) 64.9 % (50.0-75.0) 05/16/18 06:32 Lymph % (Auto) 13.3 % (20.0-40.0) L 05/16/18 06:32 [place] % (Auto) 20.8 % (0.0-10.0) H 05/16/18 06:32 Eos % (Auto) 0.7 % (0.0-4.0) 05/16/18 06:32 Baso % (Auto) 0.3 % (0.0-2.0) 05/16/18 06:32 Neut # (Auto) 4.4 K/uL (1.8-7.0) 05/16/18 06:32 Lymph # (Auto) 0.9 K/uL (1.0-4.3) L 05/16/18 06:32 [place] # (Auto) 1.4 K/uL (0.0-0.8) H 05/16/18 06:32 Eos # (Auto) 0.1 K/uL (0.0-0.7) 05/16/18 06:32 Baso # (Auto) 0.0 K/uL (0.0-0.2) 05/16/18 06:32 Neutrophils % (Manual) 50 % (50-75) 05/16/18 06:32 Band Neutrophils % 13 % (0-2) H* 05/16/18 06:32 Lymphocytes % (Manual) 13 % (20-40) L 05/16/18 06:32 Reactive Lymphs % 1 % (0-0) H 05/16/18 06:32 Monocytes % (Manual) 23 % (0-10) H 05/16/18 06:32 Eosinophils % (Manual) 1 % (0-4) 05/15/18 06:36 Platelet Estimate Normal (NORMAL) 05/16/18 06:32 Plt Clumps, EDTA Present 05/15/18 06:36 RBC Morphology Normal 05/15/18 06:36 Anisocytosis (manual) Slight 05/16/18 06:32 Sodium 134 mmol/L (132-148) 05/16/18 15:39 Potassium 3.3 mmol/L (3.6-5.2) L 05/16/18 15:39 Chloride 96 mmol/L (98-107) L 05/16/18 15:39 Carbon Dioxide 27 mmol/L (22-30) 05/16/18 15:39 Anion Gap 15 (10-20) 05/16/18 15:39 BUN 4 mg/dL (9-20) L 05/16/18 15:39 Creatinine 0.7 mg/dL (0.8-1.5) L 05/16/18 15:39 Est GFR ( Amer) > 60 05/16/18 15:39 Est GFR (Non-Af Amer) > 60 05/16/18 15:39 Random Glucose 99 mg/dL (75-110) 05/16/18 15:39 Calcium 8.7 mg/dl (8.6-10.4) 05/16/18 15:39 Phosphorus 1.2 mg/dL (2.5-4.5) L 05/16/18 06:32 Magnesium 1.9 mg/dL (1.6-2.3) 05/16/18 06:32 Total Bilirubin 0.4 mg/dL (0.2-1.3) 05/16/18 06:32 AST 38 U/L (17-59) 05/16/18 06:32 ALT 30 U/L (21-72) 05/16/18 06:32 Alkaline Phosphatase 67 U/L (38-126) 05/16/18 06:32 Total Protein 6.4 g/dL (6.3-8.3) 05/16/18 06:32 Albumin 3.8 g/dL (3.5-5.0) 05/16/18 06:32 Globulin 2.6 gm/dL (2.2-3.9) 05/16/18 06:32 Albumin/Globulin Ratio 1.5 (1.0-2.1) 05/16/18 06:32 Lipase 98 U/L (23-300) 05/14/18 17:44 Urine Color Yellow (YELLOW) 05/14/18 17:19 Urine Clarity Hazy (Clear) 05/14/18 17:19 Urine pH 5.0 (5.0-8.0) 05/14/18 17:19 Ur Specific [place] 1.020 (1.003-1.030) 05/14/18 17:19 Urine Protein 2+ mg/dL (NEGATIVE) H 05/14/18 17:19 Urine Glucose (UA) Normal mg/dL (Normal) 05/14/18 17:19 Urine Ketones Negative mg/dL (NEGATIVE) 05/14/18 17:19 Urine Blood Negative (NEGATIVE) 05/14/18 17:19 Urine Nitrate Negative (NEGATIVE) 05/14/18 17:19 Urine Bilirubin Negative (NEGATIVE) 05/14/18 17:19 Urine Urobilinogen Normal mg/dL (0.2-1.0) 05/14/18 17:19 Ur Leukocyte Esterase Neg Patience/uL (Negative) 05/14/18 17:19 Urine WBC (Auto) 2 /hpf (0-5) 05/14/18 17:19 Urine RBC (Auto) 1 /hpf (0-3) 05/14/18 17:19 Ur Squamous Epith Cells < 1 /hpf (0-5) 05/14/18 17:19 Hyaline Casts >20 /lpf (0-2) H 05/14/18 17:19 Stool Occult Blood Positive (NEGATIVE) H 05/15/18 04:03 Stool Leukocytes, Qual Negative (NEGATIVE) 05/15/18 04:03 Urine Opiates Screen Negative (NEGATIVE) 05/16/18 07:33 Urine Methadone Screen Negative (NEGATIVE) 05/16/18 07:33 Ur Barbiturates Screen Negative (NEGATIVE) 05/16/18 07:33 Ur Phencyclidine Scrn Negative (NEGATIVE) 05/16/18 07:33 Ur Amphetamines Screen Negative (NEGATIVE) 05/16/18 07:33 U Benzodiazepines Scrn Negative (NEGATIVE) 05/16/18 07:33 U Oth Cocaine Metabols Negative (NEGATIVE) 05/16/18 07:33 U Cannabinoids Screen Positive (NEGATIVE) H 05/16/18 07:33 C. difficile Ag & Toxin Negative (NEGATIVE) 05/15/18 04:03 - Hospital Course Hospital Course: On admission: HPI: Patient is a 33 year old male with a past medical history of RA, who presents with complaints of diarrhea and vomiting. The patient states he has had diarrhea since Friday, is constant, and is watery. He also started vomiting on Friday. He states he is unable to keep any food or liquids down. He tried taking theraflu and alkaseltzer with no relief of his symptoms. He did not change his diet or eat anything new this past weekend. The patient denies chest pain, abdominal pain, dyspnea, cough, fevers, headaches, dysuria, hematuria, and blood in stool. Hospital course: Patient's course was suspected to be viral mediated gastroenteritis. Studies were collected including- stool leukocytes, culture, ova and parasite and c. diff. Stool occult positive. Stool leukocytes and c. diff negative. Despite results- was still awaiting further testing. Patient given normal saline fluids and antiemetics. Electrolytes repleted as needed. Code ECHO called after patient was spotted outside the hospital talking with a friend. Patient instructed that he could not leave the inside of the hospital and was thus escorted back inside. CLAUDIA resolved with fluids. Bandemia noted without white count. Plan was to continue workup however patient chose to leave against medical advice. Workup could not be completed as a result. Associated risks of leaving AMA addressed with patient. This is a brief summary of events. For a complete course, refer to medical record. Discharge Exam - Head Exam Head Exam: ATRAUMATIC, NORMAL INSPECTION, NORMOCEPHALIC - Eye Exam Eye Exam: EOMI, Normal appearance Pupil Exam: NORMAL ACCOMODATION - ENT Exam ENT Exam: Mucous Membranes Moist - Respiratory Exam Respiratory Exam: NORMAL BREATHING PATTERN - Cardiovascular Exam Cardiovascular Exam: +S1, +S2 - GI/Abdominal Exam GI & Abdominal Exam: Normal Bowel Sounds - Extremities Exam Extremities exam: full ROM, normal capillary refill, pedal pulses present - Back Exam Back exam: FULL ROM - Neurological Exam Neurological exam: Alert, Oriented x3 - Psychiatric Exam Psychiatric exam: Normal Affect, Normal Mood - Skin Skin Exam: Dry, Normal Color, Warm Discharge Plan - Follow Up Plan Condition: FAIR Disposition: AGAINST MEDICAL ADVICE Instructions: Renal Failure Diet (DC), Acute Abdominal Pain (DC), Acute Abdominal Pain (GEN)
== END 2018-05-16 17:21 | disposition left against medical advice (07) | DRG 551 ==
LOC: C.ER 16:22 → C.9E 19:49 → C.3T 20:55
PROVIDERS: ADMIT Family Medicine; ATTEND Family Medicine
DX: A08.4 Viral intestinal infection, unspecified (principal); N17.9 Acute kidney failure, unspecified; F14.90 Cocaine use, unspecified, uncomplicated; E87.6 Hypokalemia; E86.0 Dehydration; F12.90 Cannabis use, unspecified, uncomplicated; I88.0 Nonspecific mesenteric lymphadenitis; M06.9 Rheumatoid arthritis, unspecified; Z72.0 Tobacco use; Z87.442 Personal history of urinary calculi; E53.9 Vitamin B deficiency, unspecified; D72.825 Bandemia